=== PATIENT | male | born 1955 | race Caucasian/White ===

== ENCOUNTER → 2020-12-23 17:30 | Outpatient (CLI) | payer OTHER, SELFPAY ==
--- NOTE | 2020-12-23 17:32 | DI.MRI.S_ITS ---
PROCEDURE: MR LUMBAR SPINE WO CON INDICATIONS: Radiculopathy, lumbar region TECHNIQUE: Noncontrast sagittal T1 spin echo and T2 fast echo, sagittal STIR, axial T1 and T2 fast spin echo through the lumbar spine. In cases with scoliosis, additional coronal T2 fast spin echo may be performed. COMPARISON: [facility] [place], CR, XR LUMBAR SPINE WITH OLBIQUES PLUS FLEXION EXTENSION, 12/09/2020, 9:35. FINDINGS: Image quality: Excellent. Alignment and Curvature: 5 lumbar type vertebral bodies are present by plain film. There is mild grade 1 retrolisthesis of L5 on S1. Bone Marrow: Marrow is of normal overall signal. No acute vertebral body compression fractures. Mild reactive signal throughout the endplates of the lumbar and lower thoracic spine. Spinal Cord: Conus medullaris terminates at the L1-L2 disc space level. Visualized cord demonstrates normal signal and size. Paraspinous Soft Tissues: No paravertebral masses. T12-L1: Mild disc height loss and desiccation. No significant canal, or foraminal stenosis. L1-L2: Mild disc height loss and desiccation. Mild diffuse disc bulge. Mild facet and ligamentum flavum hypertrophy. Mild epidural lipomatosis. Mild canal stenosis. No foraminal stenosis. L2-L3: Mild disc height loss and desiccation. Mild diffuse disc bulge. Mild facet and ligamentum flavum hypertrophy. Mild epidural lipomatosis. Mild canal stenosis. Mild bilateral foraminal stenosis. L3-L4: Mild disc height loss and desiccation. Mild diffuse disc bulge. Mild facet hypertrophy. Mild epidural lipomatosis. Mild canal stenosis. Mild bilateral foraminal stenosis. L4-L5: Moderate disc height loss and desiccation. Mild diffuse disc bulge. Mild facet and ligamentum flavum hypertrophy. Mild epidural lipomatosis. Mild canal stenosis. Mild left and moderate right foraminal stenosis. L5-S1: Moderate disc desiccation. Mild disc height loss and diffuse disc bulge with superimposed left far lateral broad-based protrusion. Mild bilateral facet hypertrophy. Mild canal stenosis. Moderate right and severe left foraminal stenosis. Left L5 nerve root compression. IMPRESSION: 1. Multilevel degenerative disc and facet disease, as well as ligamentum flavum hypertrophy and epidural lipomatosis. 2. Mild multilevel canal stenosis. 3. Multilevel foraminal stenoses, worst on the left at L5-S1 where there is associated intraforaminal nerve root compression. Recommend correlation with clinical symptoms to ascertain relevance of this finding. Dictated by: Humberto Telles M.D. on 12/24/2020 at 9:11 Approved by: Humberto Telles M.D. on 12/24/2020 at 9:14
== END ==
PROVIDERS: Referring Provider Physical Medicine & Rehabilitation; Visit Provider Physical Medicine & Rehabilitation
DX: M51.16 Intervertebral disc disorders with radiculopathy, lumbar region (principal); M51.17 Intervertebral disc disorders with radiculopathy, lumbosacral region; M48.061 Spinal stenosis, lumbar region without neurogenic claudication; M48.07 Spinal stenosis, lumbosacral region; E88.2 Lipomatosis, not elsewhere classified
CPT/HCPCS: 72148

== ENCOUNTER 2021-01-31 17:27 | Emergency (ER) | payer OTHER, SELFPAY ==
[2021-01-31 17:29] VITALS: BP 220/97; PULSE 62; RESP 20; TEMP 36.9; O2SAT 98
--- NOTE | 2021-01-31 17:34 | DI.RAD.S_ITS ---
PROCEDURE: XR FOOT LT MIN 3V INDICATIONS: Crush injury TECHNIQUE: 3 views of the foot were acquired. COMPARISON: [facility], , FOOT 3V LEFT, 06/17/2007, 10:07. FINDINGS: Mildly displaced and comminuted fracture of the 4th proximal phalanx through the distal diaphysis and metaphysis, with the fracture plane extending parallel to the long axis of the bone into the proximal interphalangeal joint space. Remaining bones intact. No radiopaque foreign body. IMPRESSION: Mildly displaced and comminuted 4th proximal phalanx fracture with extension into the proximal interphalangeal joint. Dictated by: Arturo Mendoza M.D. on 01/31/2021 at 18:02 Approved by: Arturo Mendoza M.D. on 01/31/2021 at 18:02
--- NOTE | 2021-01-31 20:20 | PC.NURSE ---
Air bottle fell out of back of truck landing on top of foot, bruising noted to top of left foot and left fourth toe. Patient has intermittent sharp shooting pains in foot.
--- NOTE | 2021-01-31 20:25 | ED.LOWEXIN ---
HPI - Extremity Injury (Lower) General Chief Complaint: Extremity Injury, Lower Stated Complaint: Left Foot Injury Time Seen by Provider: 01/31/21 20:25 Source: patient Mode of arrival: Ambulatory History of Present Illness HPI Narrative: 65-year-old gentleman who does not frequent doctors and has no specific medical history for which he takes prescription medications presents after a school but tank landed on his foot over the 4th proximal phalanx. He was able to continue his work day which included walking up and down [place] [employer] and 2 dives. As he drove in to town for the evening use noticing that he was having increasing pain and comes in for further evaluation. Related Data Previous Rx's Medication Instructions Recorded oxycodone-acetaminophen 5 mg-325 1 tab PO Q6H PRN #8 tab 01/31/21 mg tablet Allergies Allergy/AdvReac Type Severity Reaction Status Date / Time No Known Drug Allergies Allergy Unverified 10/20/20 13:05 Review of Systems Review of Systems Narrative: Pertinent positive and negative findings as per HPI Remainder of review of systems is otherwise unremarkable for Constitutional: Fevers, chills, weakness ENT: No sore throat, neck pain, ear pain CV: Chest pain, palpitations, Respiratory: Cough, wheeze, dyspnea GI: Nausea, vomiting, diarrhea, : Dysuria, hematuria, Patient History Social History Smoking Status: Never smoker Smoking Status: Never smoker Exam Narrative Exam Narrative: General: Alert appropriate in no acute distress Respiratory: Able to speak in full sentences, no obvious respiratory distress Skin: No obvious rashes, warm and dry Neurologic: Grossly intact no obvious asymmetries or abnormalities Psych: appropriate insight and affect, cooperative Extremity: Left foot with some ecchymosis along the 4th toe no skin abrasions and no other injury to the foot itself Initial Vital Signs Initial Vital Signs: Vital Signs Temperature 98.4 F 01/31/21 17:29 Pulse Rate 62 01/31/21 17:29 Respiratory Rate 20 01/31/21 17:29 Blood Pressure 220/97 H 01/31/21 17:29 Pulse Oximetry 98 01/31/21 17:29 Course Orders Ordered: ED Orders 01/31/21 17:34 XR foot LT min 3V Stat Discontinued Medications Oxycodone/Acetaminophen (Oxycodone/Apap 5/325 Prepack) 1 bottle MISC SEEINSTR ONE Stop: 01/31/21 20:40 Vital Signs Vital signs: Vital Signs - 8 hr 01/31/21 17:29 Temperature 98.4 F Pulse Rate 62 Respiratory Rate 20 Blood Pressure 220/97 H Pulse Oximetry 98 [facility] - Extremity Injury (Lower) Imaging Data Xray foot: Radiologist's Impression: FINDINGS:? ? Mildly displaced and comminuted fracture of the 4th proximal phalanx through the distal diaphysis and metaphysis, with the fracture plane extending parallel to the long axis of the bone into the proximal interphalangeal joint space.? Remaining bones intact.? No radiopaque foreign body. ? ? IMPRESSION:? Mildly displaced and comminuted 4th proximal phalanx fracture with extension into the proximal interphalangeal joint.? ? ? Dictated by: Arturo Mendoza M.D. on 01/31/2021 at 18:02? [facility] Narrative Medical decision making narrative: 65-year-old gentleman who dropped a scuba tank, valve surface 1st, onto his foot and has a comminuted 4th proximal phalanx fracture. He is able to walk and has no other significant symptoms. We discussed pain control, resting for the next couple of days and using a hard soled shoe for comfort. He actually has multiple options available including of boot splint from a friend that he has access to as well. He is safe for home discharge Discharge Plan Departure Patient Disposition: Home Clinical Impression: Fracture of toe of left foot Qualifiers: Encounter type: initial encounter Toe: lesser toe Fracture type: closed Phalanx: proximal Fracture alignment: displaced Qualified Code(s): S92.512A - Displaced fracture of proximal phalanx of left lesser toe(s), initial encounter for closed fracture Instructions: DI for Toe Fracture Activity Restrictions/Additional Instructions: Thank you for coming in today You did break the bone of your left 4th toe. It should heal nicely with use of a hard soled shoe to minimize movement of your toe. Keeping the foot elevated and ice can help with pain and swelling Using 400 mg of ibuprofen (2 [id number] pills) and 1 Tylenol every 6 hours can be very helpful in controlling pain. For severe pain using 400 mg of ibuprofen and 1 Percocet can be helpful. A prescription for Percocet was electronically transmitted to [facility] in [place] Your blood pressure in the ER today was quite elevated. I would recommend that you get a blood pressure cuff and begin monitoring numbers. You may need to be treated for high blood pressure. It is called a silent killer because it tends to have minimal symptoms until you end up having your 1st heart attack Please feel free to call the health administrative resources associate at [phone] for help in finding a primary care provider in [place] If you have difficulty with your foot or increasing pain, please follow-up with [facility], their phone number is [phone] I hope you heal quickly Prescriptions: New oxycodone-acetaminophen 5-325 mg tablet 1 tab PO Q6H PRN (Reason: pain) Qty: 8 RF: 0
[2021-01-31 20:46] VITALS: BP 216/99; PULSE 78; RESP 12; O2SAT 97
[2021-01-31] MEDS: OXYCODONE/APAP 5/325 PREPACK 1 BOTTLE MISC (20:51)
== END 2021-01-31 20:58 | disposition home or self-care (01) ==
PROVIDERS: Emergency Provider Emergency Medicine
DX: S92.512A Displaced fracture of proximal phalanx of left lesser toe(s), initial encounter for closed fracture (principal); W20.8XXA Other cause of strike by thrown, projected or falling object, initial encounter
CPT/HCPCS: 73630; 99283

== ENCOUNTER → 2022-07-14 13:02 | Outpatient (CLI) | payer OTHER, SELFPAY ==
[2022-07-14 14:47] LABS: Influenza A - CEPHEID Flu A NEGATIVE (NEGATIVE); Influenza B - CEPHEID Flu B NEGATIVE (NEGATIVE); Respiratory Syncytial Virus Negative (Negative)
[2022-07-14 14:51] LABS: COVID-19 CEPHEID 4-PLEX PCR Negative (Negative)
== END ==
PROVIDERS: Visit Provider Registered Nurse
DX: N39.0 Urinary tract infection, site not specified (principal); J06.9 Acute upper respiratory infection, unspecified; Z20.822 Contact with and (suspected) exposure to COVID-19
CPT/HCPCS: 0241U; 87077; 87086; 87186

== ENCOUNTER 2022-08-05 15:47 | Observation (INO) | payer OTHER, SELFPAY ==
[2022-08-05] VITALS (16 sets, daily range): BP systolic 147–201; BP diastolic 75–106; PULSE 62–78; RESP 10–23; TEMP 36.6–38; O2SAT 97–99; BMI 25.8; BMI 26.2
--- NOTE | 2022-08-05 16:02 | DI.CT.S_ITS ---
PROCEDURE: CT CHEST ABD PEL W CON INDICATIONS: Trauma TECHNIQUE: After the administration of intravenous contrast, 5 mm thick sections acquired from the lung apices to the symphysis. 5 mm coronal and sagittal reformats were performed, with additional 7 mm MIP reformats through the lungs. For radiation dose reduction, the following was used: automated exposure control, adjustment of mA and/or kV according to patient size. COMPARISON: None. FINDINGS: Chest: Cardiovascular: Heart size is normal. No evidence of pulmonary embolism, aortic aneurysm or dissection. Lungs and pleural spaces: The lung salazar are clear without nodule, infiltrate or interstitial prominence. Pleural spaces show no effusion or pneumothorax. Lymph nodes: No mediastinal, hilar or axillary adenopathy. Mediastinum: Unremarkable. No hiatal hernia. Thyroid within normal limits. Chest Wall and Bones: Comminuted right clavicular fracture. Nondisplaced right anterolateral 7th rib fracture Abdomen and Pelvis: Liver: The liver is diffusely decreased in attenuation without focal mass lesion. Biliary system: No calcified cholelithiasis or pericholecystic inflammation. No intra or extrahepatic bile duct dilatation. Pancreas: Unremarkable without mass or inflammation evident. Spleen: Normal in size and density. Adrenals: Normal morphology and density. Reproductive system: Unremarkable as visualized. Urinary system: 4.8 cm left renal cyst. Evidence of traumatic injury Gastrointestinal system: The bowel is unremarkable with no evidence of bowel obstruction or inflammation. The stomach appears unremarkable. Appendix: No findings to suggest acute appendicitis. Lymph nodes: No mesenteric or retroperitoneal adenopathy. Peritoneal spaces: No free air. No free fluid. Vasculature: Aortic atherosclerotic vascular calcification noted without evidence of aneurysm. Abdominal wall: Abdominal wall intact without evidence of ventral or inguinal hernias. Musculoskeletal: Fracture through the anterior aspect of the right acetabulum. No dislocation. IMPRESSION: 1. Comminuted right clavicular fracture, nondisplaced right anterolateral 7th rib fracture, and nondisplaced fracture through the right anterior acetabulum 2. No evidence of pneumothorax or solid organ injury. 3. Additional chronic findings as above Approved by: Deandre Garcia M.D. on 08/05/2022 at 17:03
--- NOTE | 2022-08-05 16:02 | DI.CT.S_ITS ---
PROCEDURE: CT CERVICAL SPINE WO CON INDICATIONS: Trauma TECHNIQUE: Noncontrast 3 mm thick sections acquired from the skull base to the T4 level. Sagittal and coronal reformats were then constructed. For radiation dose reduction, the following was used: automated exposure control, adjustment of mA and/or kV according to patient size. COMPARISON: None. FINDINGS: Image quality: Excellent. Bones: Disc space narrowing and facet arthropathy noted in the mid cervical spine. There is normal bone mineral density without fracture of the cervical spine proper. Normal craniovertebral relationships. Skull base unremarkable. Incidental note is made comminuted right clavicular fracture, partially imaged Soft tissues: Prevertebral soft tissues are normal in thickness. No paravertebral hematomas. No apical pneumothoraces. IMPRESSION: No evidence of fracture or traumatic malalignment in the cervical spine. Incidental right comminuted clavicular fracture, further detailed in CT chest abdomen and pelvis report Multilevel degenerative disc disease and arthropathy in cervical spine Approved by: Deandre Garcia M.D. on 08/05/2022 at 16:56
--- NOTE | 2022-08-05 16:02 | DI.CT.S_ITS ---
PROCEDURE: CT HEAD/BRAIN WO CON INDICATIONS: Trauma TECHNIQUE: Noncontrast 4.5 mm thick angled axial sections acquired from the foramen magnum to the vertex, with coronal and sagittal reformats. For radiation dose reduction, the following was used: automated exposure control, adjustment of mA and/or kV according to patient size. COMPARISON: None. FINDINGS: Image quality: Excellent. CSF spaces: Basal cisterns are patent. No extra-axial fluid collections. Ventricles are normal in size and shape. Brain: No midline shift. No intracranial masses or hemorrhage. Melton-white matter interface is normal. Moderate cerebral and cerebellar volume loss with multifocal white matter chronic ischemic change noted. Atherosclerotic calcification noted associated with cavernous segments of both internal carotid arteries. Skull and face: Calvarium and visualized facial bones are intact, without suspicious lesions. Sinuses: Visualized sinuses and mastoids are clear. IMPRESSION: Atrophy and chronic ischemic change without intracranial hemorrhage or mass effect Approved by: Deandre Garcia M.D. on 08/05/2022 at 16:44
--- NOTE | 2022-08-05 16:10 | DI.CT.S_ITS ---
PROCEDURE: CT FACIAL BONES WO CON INDICATIONS: trauma TECHNIQUE: Noncontrast 2.5 mm thick axial images acquired from the mandible through the frontal sinuses, with coronal and sagittal reformatting. For radiation dose reduction, the following was used: automated exposure control, adjustment of mA and/or kV according to patient size. COMPARISON: None. FINDINGS: Maxillofacial Bones: The zygomaticomaxillary complex is intact. The pterygoid plates and skull base are unremarkable. No evidence of fracture or lytic lesion. Mandible: The mandible is intact without fracture. Unremarkable temporomandibular articulation. Dentition: Unremarkable mandibular and maxillary dentition. Soft tissues: No maxillofacial soft tissue swelling. No radiopaque foreign bodies. Orbits: The osseous orbits, globes and ocular muscles unremarkable. Sinuses and Mastoid: Mild maxillary sinus mucosal thickening measures up to 0.4 mm. Bilateral pneumatization of the middle turbinates with paradoxical curvature present as well IMPRESSION: No evidence of maxillofacial fracture. Maxillary mucosal sinus disease Approved by: Deandre Garcia M.D. on 08/05/2022 at 17:07
--- NOTE | 2022-08-05 16:10 | DI.RAD.S_ITS ---
PROCEDURE: XR SHOULDER RT MIN 2V INDICATIONS: trauma TECHNIQUE: 2 views of the shoulder were acquired. COMPARISON: None. FINDINGS: Bones: Comminuted clavicular fracture inferior displacement distal fracture fragment in bayonet apposition Soft tissues: No suspicious soft tissue calcifications. IMPRESSION: Comminuted displaced clavicular fracture Approved by: Deandre Garcia M.D. on 08/05/2022 at 17:09
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
[2022-08-05] MEDS: HYDROMORPHONE 1 MG INJ IV (16:16)
[2022-08-05] MEDS: ONDANSETRON 4 MG/2 ML INJ IV (16:16)
[2022-08-05 16:57] LABS: Add Manual Diff / Slide Review NO; Basophils Absolute Auto 100 /uL (0-100); Basophils Percent Auto 0.8 % (0-2); Eosinophils Absolute Auto 400 /uL (0-450); Eosinophils Percent Auto 3.4 % (2-4); Hematocrit 43.2 % (41-53); Hemoglobin 15.1 g/dL (13.5-17.5); Lymphocytes Absolute Auto 4100 /uL (1100-4500); Lymphocytes Percent Auto 38.5 % (25-40); Mean Corpuscular HGB Conc 34.9 % (30-36); Mean Corpuscular Hemoglobin 31.9 PG (26-34); Mean Corpuscular Volume 91.5 fL (80-100); Monocytes Absolute Auto 1000 /uL (0-900); Monocytes Percent Auto 9.2 % (3-14); Neutrophils Absolute Auto 5100 /uL (1500-7000); Neutrophils Percent Auto 48.1 % (50-75); Platelet Count 199 X10^3/uL (150-400); Red Blood Cell Count 4.72 X10^6/uL (4.5-5.9); Red Cell Distribution Width 13.2 % (11.6-14.8); White Blood Cell Count 10.5 X10^3/uL (4.5-11.0)
[2022-08-05 17:08] LABS: Prothrombin Time 11.3 SECONDS (10.1-12.7)
[2022-08-05 17:10] LABS: PTT Partial Thromboplastin Tim 31 SECONDS (26-36)
[2022-08-05 17:12] LABS: Alanine Aminotransferase 47 IU/L (<50); Albumin 4.5 g/dL (3.5-5.0); Albumin Globulin Ratio 1.5 (1.0-2.8); Alkaline Phosphatase 81 U/L (38-126); Aspartate Aminotransferase 45 IU/L (17-59); Bilirubin Total 0.6 mg/dL (0.2-1.3); Blood Urea Nitrogen 14 mg/dL (9-20); Calcium 9.3 mg/dL (8.4-10.2); Carbon Dioxide 29 mmol/L (22-32); Chloride 102 mmol/L (98-107); Estimated Glomerular Filt Rate > 60 mL/min (>60); Ethanol (ETOH) < 10 mg/dL; Globulin 3.1 g/dL (1.7-4.1); Glucose 114 mg/dL (80-110); HEMOLYSIS < 15 (0-50); Lactate (Lactic Acid) 1.6 mmol/L (0.7-2.1); Lipase 101 U/L (23-300); Potassium 3.4 mmol/L (3.4-5.1); Sodium 137 mmol/L (137-145); Total Protein 7.6 g/dL (6.3-8.2)
[2022-08-05 19:34] LABS: COVID19 -Nasal RAPID Negative (Negative)
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
[2022-08-05] MEDS: HYDROMORPHONE 0.5 MG INJ IV (20:55)
[2022-08-05] MEDS: ACETAMINOPHEN 325 MG TABLET 650 MG PO (21:36)
[2022-08-05] MEDS: SENNOSIDES 8.6 MG TABLET 17.2 MG PO (21:37)
[2022-08-05] MEDS: LACTATED RINGERS 1,000 ML 60 ML IV (21:37)
[2022-08-06] MEDS: HYDROCODONE/ACET 5/325 TABLET 2 TAB PO ×5 (01:58→20:16)
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
[2022-08-06 05:31] LABS: Add Manual Diff / Slide Review NO; Basophils Absolute Auto 100 /uL (0-100); Basophils Percent Auto 0.6 % (0-2); Eosinophils Absolute Auto 200 /uL (0-450); Eosinophils Percent Auto 2.1 % (2-4); Hematocrit 40.1 % (41-53); Hemoglobin 13.9 g/dL (13.5-17.5); Lymphocytes Absolute Auto 2300 /uL (1100-4500); Lymphocytes Percent Auto 20.9 % (25-40); Mean Corpuscular HGB Conc 34.6 % (30-36); Mean Corpuscular Hemoglobin 31.7 PG (26-34); Mean Corpuscular Volume 91.7 fL (80-100); Monocytes Absolute Auto 900 /uL (0-900); Monocytes Percent Auto 7.9 % (3-14); Neutrophils Absolute Auto 7500 /uL (1500-7000); Neutrophils Percent Auto 68.5 % (50-75); Platelet Count 184 X10^3/uL (150-400); Red Blood Cell Count 4.37 X10^6/uL (4.5-5.9); Red Cell Distribution Width 12.8 % (11.6-14.8)
[2022-08-06 06:00] VITALS: BP 151/76; PULSE 63; RESP 17; TEMP 36.8; O2SAT 96
[2022-08-06 06:00] LABS: BUN Creatinine Ratio 15.3 (6-22); Blood Urea Nitrogen 13 mg/dL (9-20); Calcium 8.7 mg/dL (8.4-10.2); Carbon Dioxide 23 mmol/L (22-32); Chloride 98 mmol/L (98-107); Estimated Glomerular Filt Rate > 60 mL/min (>60); Glucose 106 mg/dL (80-110); HEMOLYSIS 18 (0-50); Sodium 131 mmol/L (137-145)
[2022-08-06 06:15] LABS: Appearance Urine UA CLEAR; Bilirubin Urine UA NEGATIVE (NEGATIVE); Color Urine UA YELLOW; Glucose Urine UA NEGATIVE (Negative); Ketones Urine UA NEGATIVE (NEGATIVE); Leukocyte Esterase Urine UA NEGATIVE (NEGATIVE); Nitrite Urine UA NEGATIVE (Negative); Occult Blood Urine UA NEGATIVE (Negative); Protein Urine UA NEGATIVE (Negative); Specific Gravity Urine UA 1.015 (1.000-1.035); pH Urine UA 6.5 (4.5-8.0)
[2022-08-06 07:15] LABS: Bacteria Urine Occasional (0-1); Culture Indicated Urine Cult Not Indicated; RBC Urine 0-1/HPF (0-5/HPF); Squamous Epithelial Cell Urine 0-1 /HPF (0-5/HPF); WBC Urine None Seen (0-5/HPF)
--- NOTE | 2022-08-06 07:19 | PC.NURSE ---
Pt reports worship of [employer]. Will not accept blood products. Provider informed.
[2022-08-06] MEDS: ENOXAPARIN 40 MG/0.4 ML SYRINGE SUBCUT (09:35)
--- NOTE | 2022-08-06 10:36 | DI.CT.S_ITS ---
PROCEDURE: CT PEL WO CON INDICATIONS: Acetabular fracture TECHNIQUE: After the administration of oral contrast, 5 mm thick sections acquired from the iliac crests to the symphysis. 5 mm coronal and sagittal reformats were then performed. For radiation dose reduction, the following was used: automated exposure control, adjustment of mA and/or kV according to patient size. COMPARISON: [facility], CT, CT CHEST ABD PEL W CON, 08/05/2022, 16:06. FINDINGS: Minimally displaced fracture through the anterior lip of the right acetabulum is again noted, similar to prior exam. Additionally, there is a nondisplaced cortical fracture involving the posterior cortex of the right superior pubic rami, and a nondisplaced completed linear fracture through the right inferior pubic rami. Soft tissues normal without hematoma. Degenerative changes noted lower lumbar spine. IMPRESSION: 1. Minimally displaced fracture, anteriorly above the right acetabulum. 2. Additional nondisplaced complete fracture through right inferior pubic rami as well as incomplete cortical fracture involving the posterior aspect of the superior pubic rami Approved by: Deandre Garcia M.D. on 08/06/2022 at 15:54
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
[2022-08-06 11:31] VITALS: BP 161/86; PULSE 62; RESP 18; TEMP 36.8; O2SAT 94
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
[2022-08-06 15:52] VITALS: BP 171/86; PULSE 62
[2022-08-06] MEDS: lisinopriL 5 MG TABLET PO ×2 (15:52→20:16)
--- NOTE | 2022-08-06 16:03 | PC.NURSE ---
Assumed care of pt at 1500, A&Ox4, c/o 5/10 pain to R clavicle and R hip. CMS intact to R UE and R LE. N/t at baseline to LLE. Lungs CTA, bowel sounds present, no c/o constipation. Pt prepared for CT, escorted to bathroom 1 person SBA.
[2022-08-06 18:00] VITALS: BP 139/72; PULSE 62; RESP 18; TEMP 36.4; O2SAT 94
[2022-08-06 20:16] VITALS: BP 139/72; PULSE 72
[2022-08-06] MEDS: SENNOSIDES 8.6 MG TABLET 17.2 MG PO (20:16)
[2022-08-07] VITALS (7 sets, daily range): BP systolic 122–152; BP diastolic 68–80; PULSE 52–65; RESP 16–18; TEMP 36.7–37.5; O2SAT 95–100
[2022-08-07] MEDS: HYDROCODONE/ACET 5/325 TABLET 2 TAB PO ×2 (04:35→08:39)
[2022-08-07 04:42] LABS: Add Manual Diff / Slide Review NO; Basophils Absolute Auto 100 /uL (0-100); Basophils Percent Auto 0.7 % (0-2); Eosinophils Absolute Auto 400 /uL (0-450); Eosinophils Percent Auto 4.5 % (2-4); Hematocrit 40.2 % (41-53); Hemoglobin 13.9 g/dL (13.5-17.5); Lymphocytes Absolute Auto 2000 /uL (1100-4500); Lymphocytes Percent Auto 20.9 % (25-40); Mean Corpuscular HGB Conc 34.7 % (30-36); Mean Corpuscular Hemoglobin 31.9 PG (26-34); Mean Corpuscular Volume 92.1 fL (80-100); Monocytes Absolute Auto 1000 /uL (0-900); Monocytes Percent Auto 10.2 % (3-14); Neutrophils Absolute Auto 6000 /uL (1500-7000); Neutrophils Percent Auto 63.7 % (50-75); Platelet Count 164 X10^3/uL (150-400); Red Blood Cell Count 4.37 X10^6/uL (4.5-5.9); Red Cell Distribution Width 13.2 % (11.6-14.8); White Blood Cell Count 9.4 X10^3/uL (4.5-11.0)
[2022-08-07 04:56] LABS: Alanine Aminotransferase 33 IU/L (<50); Albumin 3.7 g/dL (3.5-5.0); Albumin Globulin Ratio 1.2 (1.0-2.8); Alkaline Phosphatase 75 U/L (38-126); Aspartate Aminotransferase 25 IU/L (17-59); BUN Creatinine Ratio 17.3 (6-22); Bilirubin Total 0.6 mg/dL (0.2-1.3); Blood Urea Nitrogen 17 mg/dL (9-20); Calcium 8.9 mg/dL (8.4-10.2); Carbon Dioxide 27 mmol/L (22-32); Chloride 103 mmol/L (98-107); Estimated Glomerular Filt Rate > 60 mL/min (>60); Glucose 101 mg/dL (80-110); HEMOLYSIS < 15 (0-50); Potassium 4.1 mmol/L (3.4-5.1); Sodium 135 mmol/L (137-145); Total Protein 6.7 g/dL (6.3-8.2)
[2022-08-07] MEDS: lisinopriL 5 MG TABLET PO ×2 (08:39→20:28)
[2022-08-07] MEDS: ENOXAPARIN 40 MG/0.4 ML SYRINGE SUBCUT (08:40)
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
[2022-08-07] MEDS: HYDRALAZINE 25 MG TABLET PO (17:29)
[2022-08-07] MEDS: ACETAMINOPHEN 325 MG TABLET 650 MG PO (17:30)
[2022-08-07] MEDS: SENNOSIDES 8.6 MG TABLET 17.2 MG PO (20:28)
[2022-08-08] MEDS: HYDROCODONE/ACET 5/325 TABLET 2 TAB PO ×2 (00:28→09:08)
[2022-08-08 00:52] VITALS: BP 154/76; PULSE 63; RESP 19; TEMP 36.5; O2SAT 96
[2022-08-08 06:29] VITALS: BP 156/80; PULSE 55; RESP 17; TEMP 36.6; O2SAT 97
[2022-08-08 08:52] VITALS: BP 141/74; PULSE 59; RESP 18; TEMP 36.4; O2SAT 96
[2022-08-08 09:07] VITALS: BP 141/74; PULSE 59
[2022-08-08] MEDS: lisinopriL 5 MG TABLET PO (09:07)
[2022-08-08] MEDS: ENOXAPARIN 40 MG/0.4 ML SYRINGE SUBCUT (09:07)
[2022-08-08] MEDS: HYDRALAZINE 25 MG TABLET PO ×2 (09:07→16:19)
--- NOTE | 2022-08-08 09:41 | PT.IPTN ---
Current Diagnoses Fracture of unspecified part of right clavicle, initial encounter for closed fracture (08/05/22) Physical Therapy Treatment Note M2 PT-IP Current Condition Start: 08/07/22 08:32 Freq: NEEDED Status: Active Protocol: Document 08/07/22 12:10 AW (Rec: 08/07/22 15:51 AW [id number]) Physical Therapy Current Condition Current Condition Evaluation Date 08/07/22 Treatment Diagnosis R clavicle fx; R 7th rib fx; R acetabular fx; impaired mobility and gait Onset Date 08/05/22 M3 PT-IP Subjective Start: 08/07/22 08:32 Freq: NEEDED Status: Active Protocol: Document 08/08/22 10:25 TS (Rec: 08/08/22 11:00 TS [id number]) Subjective Physical Therapy Visit Type Type Treatment Note Visit Start Time 09:41 Visit Stop Time 10:10 Total Visit Minutes 29 Physical Therapy Visit Comments Patient Comments Discussed wbering status of TTWB with pt prior to mobilization, is agreeable to go to SNF rehab if needed. Patient Goals Heal up and get back to regular activity LAURNE Therapy Pain Assessment Pain When Pain Assessed During Mobility Pain Present Pain Present Pain Reported M4 PT-IP Mobility and Gait Start: 08/07/22 08:32 Freq: NEEDED Status: Active Protocol: Document 08/08/22 10:25 TS (Rec: 08/08/22 11:00 TS [id number]) PT-Bed Mobility Assessment Supine to Sit Supine to Sit Standby Assistance Sit to Supine Sit to Supine Standby Assistance Scooting Scooting to Edge of Bed Standby Assistance Scooting Up and Down in Bed Standby Assistance PT-Transfer Assessment Sit to and From Stand Sit to and from Stand Standby Assistance,Use of Upper Extremities Equipment Transfer Assistive Device Gait Belt,Axillary Crutches Orthotic/Prosthetic Devices or Brace: Yes Transfers Transfer Destination Bed,Wheelchair Transfer Technique Stand Pivot Transfer Ability Level of Assist Standby Assistance,Contact Guard Assistance Comments Mobility Comments Pt found resting in bed, agreeable to PT session. Educated pt on wbering status of TTWB prior to mobilization. Pt performed supine to sit to left and to the right SBA with use of LUE and LLE. Pt sat at EOB with good midline and no use of UEs. Pt performed sit to stand with crutch x1 SBA, difficulty maintaining TTWB, x1 LOB requiring to sit back on bed. Sit to stand x1 SBA with no AD , maintained TTWB, good use of core and LLE to come into standing, transitioned to crutch with LUE. Pt performed pivot transfer to W/C SBA with crutch, PWB through RLE during transfer, unable to maintain TTWB, x1 LOB into W/C requiring CGA. Pt used W/C in room ~20' with LUE and LLE to propel and turn in room. Stand pivot transfer x1 from W /C to bed SBA with crutch LUE, again difficulty maintaining TTWB, partially wbers through RLE. Sit to supine x1 SBA, use of LUE and LLE to assist back into bed. Gait Assessment Comments Gait Comments not performed Stair Climbing Assessment Comments Stair Climbing Comments Not assessed. PT-Balance Assessment Sitting Balance and Reactions Static Sitting Balance Ability Good Dynamic Sitting Balance Ability Good Standing Balance and Reactions Static Standing Balance Ability Good Dynamic Standing Balance Ability Good Device Used Crutch vs no AD Comments Other Balance Tests/Deviations/Treatment Pt stands with no AD, has : difficulty maintaining TTWB status, transitions to crutch in stadning. Pt had LOB x2 requiring CGA x1, uses crutch to catch self. M5 PT-IP Objective Assessments Start: 08/07/22 08:32 Freq: NEEDED Status: Active Protocol: Document 08/07/22 12:10 AW (Rec: 08/07/22 15:51 AW [id number]) Orientation Orientation/Cognition Level of Alertness Alert Orientation Name,Birthday,Date,Day of Week ,Place,Situation Language Function Ability No Deficits Noted Comments Pt needs continued education and reinforcement of weightbearing status. Gross Range of Motion Upper Extremity ROM Assessment Within Functional Limits Lower Extremity ROM Assessment Within Functional Limits Strength Upper Extremity Strength Assessment Within Functional Limits Comments Strength Comments LLE grossly 5/5; distal RLE 4+ /5 to 5/5 Sensation Assessment Sensation Gross Sensation WNL M6 PT-IP Treatment Start: 08/07/22 08:32 Freq: NEEDED Status: Active Protocol: Document 08/08/22 10:25 TS (Rec: 08/08/22 11:00 TS [id number]) Physical Therapy Treatment Education Education Provided Weight Bearing Status,Safety M7 PT-IP Assessment and Plan Start: 08/07/22 08:32 Freq: NEEDED Status: Active Protocol: Document 08/08/22 10:25 TS (Rec: 08/08/22 11:00 TS [id number]) PT Summary Assessment and Plan Potential Rehabilitation Potential Good Status of Condition at Evaluation Evolving Summary Impairments Pain,Strength,Balance,Bed Mobility,Transfers,Gait Assessment Summary Pt continues to require education on TTWB status. He has difficulty maintaining TTWB during sit to stands and with stand pivot transfer to W /C. Pt continues to perform all bed mobility SBA, demonstrates good use of LUE, LLE and core to sit up on EOB. Pt performed sit to stand x1 with crutch, LOB x1 onto bed, performed sit to stand x2 with no AD, no LOB but difficult to maintain TTWB. He performed stand pivot transfer x2, x1 LOB requiring CGA to safely transfer to W/C. PT recommends SNF Rehab vs 06/11 home assist available at this time. Pt is unsafe with stand pivot transfers and ambulation due to LOBs with crutch and not being able to maintain TTWB status. W/C for home use may not be possible due to returning to trailer that may not be wide enough to accomdate it. Pt does not have family/friends house he can stay at currently. Pt is willing to go to rehab for a short time to recover enough to return home. Goals Bed Mobility Goal Independent Transfer Goal Independent,Cane,Crutches Gait Goal Independent,Cane,Crutches Gait Distance 50 Other Goals - up/down stairs SBA (if pt to discharge to an environment with stairs) Days to Meet Goals 10 Frequency of Treatment Frequency Of Treatment Twice a Day Treatment Plan Physical Therapy Treatment Plan Bed Mobility Training,Transfer Training,Gait Training, Therapeutic Exercise,Balance Retraining,Post Op Education, Discharge Planning,Hot or Cold Pack Other Recommendations and Next Treatment CHECK WB ORDER; transfers with Focus cane; gait if allower per WB status Weight Bearing Status Weight Bearing Status Touch Down Weight Bearing Allowed Weight Bearing Amount (enter % TTWB RLE (until otherwise or #) (%) specified) Recommendations To Nursing Amount of Assist Needed Standby Assistance,1 Person Assist Discharge Recommendations PT Discharge Recommendations Home with Assistance,Home Health,SNF Rehab Other Discharge Recommendations TBD pending WB status and pt progress Transportation Needs at Discharge Private Vehicle
--- NOTE | 2022-08-08 10:34 | CM.DPC ---
Addendum entered by GLEN Davidson 08/08/22 14:32: ADD: Return call from [facility] stating they obtained auth and can transport pt tomorrow around 1400. Per POWER SEWING MACHINE OPERATOR, with pt switch to WBAT he was able to ambulate the halls with crutches and complete stairs and feels he could d/c home with some assist and will not need SNF and pt confirms local friends can transport and assist with meals. Pt does not anticipate any further needs. Per MD, pt can d/c home this evening and does not anticipate any d/c barriers. SW updated [facility] but they will hold auth to confirm pt discharges home safely. BF Addendum entered by GLEN Davidson 08/08/22 11:51: ADD: Return call from [facility] admissions confirming they can accept pt and will submit for [employer] auth today in case SNF needed. JOE hasn't updated pt yet bedside and still awaiting further PT/OT. BF Original Note: DCP SNF vs Home Per MD, pt making some progress and per PT/OT pending pt's weight bearing status recommending SNF vs home and MD agreeable to get clarification from Ortho for PT/OT to work further with pt today. SW met bedside with pt and he confirms his preference is to return to his RV for healing and does not have plans to stay with friends but would be agreeable to SNF if really needed and willing for SNF referrals to local [facility] contracted facilities. SW made SNF referrals to [facility], [facility] and [facility] as they are contracted with [facility]. PASRR done. Plan: JOE to follow closely today for clarification on weight bearing status and further PT/OT to confirm SNF vs return to RV at d/c. GLEN Davidson
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
[2022-08-08 16:19] VITALS: BP 141/74; PULSE 59
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
== END 2022-08-08 16:46 | disposition home or self-care (01) | DRG 562 ==
LOC: ED 16:22 → AC 18:41
PROVIDERS: Nurse Practitioner Family; Admitting Provider Neuromusculoskeletal Medicine, Sports Medicine; Emergency Provider Emergency Medicine; Referring Provider Emergency Medicine; Visit Provider Neuromusculoskeletal Medicine, Sports Medicine
DX: S42.001A Fracture of unspecified part of right clavicle, initial encounter for closed fracture (principal); S32.401A Unspecified fracture of right acetabulum, initial encounter for closed fracture; S22.31XA Fracture of one rib, right side, initial encounter for closed fracture; I10 Essential (primary) hypertension; I16.0 Hypertensive urgency; S00.12XA Contusion of left eyelid and periocular area, initial encounter; V28.01XA Electric (assisted) bicycle driver injured in noncollision transport accident in nontraffic accident, initial encounter; Z20.822 Contact with and (suspected) exposure to COVID-19
CPT/HCPCS: 36415; 70450; 70486; 70551; 71260; 72125; 72192; 73030; 74177; 80048; 80053; 80320; 81001; 83605; 83690; 85025; 85610; 85730; 86850; 86900; 86901; 87635; 93005; 93010; 96374; 96375; 96376; 97116; 97162; 97166; 97530; 97535; 99284; C9803; G0378; J1170; J1650; J2405; Q9967

== ENCOUNTER 2024-10-16 09:39 | Emergency (ER) | payer OTHER, SELFPAY ==
[2022-08-05 21:23] VITALS: BMI 26.2
[2024-10-16 10:13] VITALS: BP 229/108; PULSE 71; RESP 16; TEMP 36.4; O2SAT 99; BMI 27.1
[2024-10-16 10:46] LABS: Add Manual Diff / Slide Review NO; Hematocrit 46.4 % (41-53); Hemoglobin 15.9 g/dL (13.5-17.5); Lymphocytes Absolute Auto 1500 /uL (1100-4500); Mean Corpuscular HGB Conc 34.2 % (30-36); Mean Corpuscular Hemoglobin 32.6 PG (26-34); Mean Corpuscular Volume 95.1 fL (80-100); Platelet Count 224 X10^3/uL (150-400)
[2024-10-16 10:55] LABS: Alanine Aminotransferase 59 IU/L (<50); Albumin 4.8 g/dL (3.5-5.0); Albumin Globulin Ratio 1.4 (1.0-2.8); Alkaline Phosphatase 89 U/L (38-126); Blood Urea Nitrogen 18 mg/dL (9-20); Calcium 9.4 mg/dL (8.4-10.2); Carbon Dioxide 22 mmol/L (22-32); Chloride 104 mmol/L (98-107); Estimated Glomerular Filt Rate > 60 mL/min (>60); Globulin 3.4 g/dL (1.7-4.1); Glucose 110 mg/dL (70-99); HEMOLYSIS < 15 (0-50); Lipase 135 U/L (23-300); Potassium 4.2 mmol/L (3.4-5.1); Sodium 137 mmol/L (137-145); Total Protein 8.2 g/dL (6.3-8.2)
[2024-10-16] MEDS: LIDOCAINE 2% (GLYDO) 6 ML GEL TOP (11:14)
[2024-10-16 11:45] LABS: Culture Indicated Urine Cult Not Indicated
--- NOTE | 2024-10-16 12:16 | ED.ABDPAIN ---
HPI - Abdominal Pain General Chief Complaint: Abdominal Pain Stated Complaint: abd pain, constipation unable to urinate Time Seen by Provider: 10/16/24 11:55 Source: patient Mode of arrival: Ambulatory History of Present Illness HPI narrative: Patient here for urinary retention as well as lower abdominal distention and discomfort. Patient states has problems with constipation has not had a bowel movement in 3 days. States he feels there is stool at the rectum. He does not take laxatives. He does drink plenty of fluids and takes in a lot of fiber in his diet. Veliz catheter was placed on arrival and patient had 1800 mL of urine out. He is feeling better but still feels stool at his rectum. Denies denies any chest pain or back pain. No syncope. Blood pressure noted. He does take blood pressure medication. However states the discomfort likely causing his blood pressure elevation. Related Data Previous Rx's ?Medication ?Instructions ?Recorded oxycodone 5 mg tablet 5 - 10 mg (1 - 2 x 5 mg) PO Q6H 08/08/22 PRN pain #30 tabs tamsulosin 0.4 mg capsule 0.4 mg PO DAILY #30 caps 10/16/24 Allergies Allergy/AdvReac Type Severity Reaction Status Date / Time No Known Drug Allergies Allergy Unverified 10/20/20 13:05 Review of Systems Review of Systems Narrative: GENERAL: Negative chills, fatigue, malaise, fever, sweats. HEENT: Negative sinus pain, ear pain, sore throat RESPIRATORY: Negative dyspnea, cough CARDIOVASCULAR: Negative chest pain, palpitations GASTROINTESTINAL: Negative vomiting, positive nausea, abdominal pain : Negative dysuria, frequency, hematuria MUSCULOSKELETAL: Negative muscle or bony pain SKIN: Negative rash, skin lesions NEUROLOGIC: Negative weakness, numbness, positive dizziness ROS Unobtainable: All systems reviewed & are unremarkable except as noted in HPI and below Patient History Family History Father Diabetes mellitus Mother Diabetes mellitus Brother Diabetes mellitus Social History household members: none alcohol intake: current alcohol intake frequency: a few times a week Alcohol type: hard liquor Exam Initial Vital Signs Initial Vital Signs: Vital Signs Temperature 97.5 F L 10/16/24 10:13 Pulse Rate 71 10/16/24 10:13 Respiratory Rate 16 10/16/24 10:13 Blood Pressure 229/108 H 10/16/24 10:13 Pulse Oximetry 99 10/16/24 10:13 Oxygen Delivery Method Room Air 10/16/24 10:13 Course Orders Ordered: Discontinued Medications Sodium Chloride (Normal Saline 0.9%) 500 mls @ 1,000 mls/hr IV BOLUS ONE Stop: 10/16/24 12:50 Last Infusion: 10/16/24 13:59 Dose: Infused Documented By: Admin: 10/16/24 13:28 Dose: 1,000 mls/hr Documented By: ALLEY Ketorolac Tromethamine (Ketorolac 30 Mg/Ml Vial) 15 mg IV NOW ONE Stop: 10/16/24 12:16 Last Admin: 10/16/24 13:27 Dose: 15 mg Documented By: ALLEY Lidocaine HCl (Lidocaine 2% (Glydo) 6 Ml Gel) 6 ml TOP NOW ONE Stop: 10/16/24 10:41 Last Admin: 10/16/24 11:14 Dose: 6 ml Documented By: NANDA Ondansetron HCl (Ondansetron 4 Mg/2 Ml Inj) 4 mg IV NOW PRN PRN Reason: Nausea And Vomiting Ondansetron HCl (Ondansetron 4 Mg Odt) 4 mg PO NOW PRN PRN Reason: Nausea And Vomiting Polyethylene Glycol/Electrolytes ([id number]/Sod Sulf,Bicarb,Cl/Kcl 4,000 Ml Solution) 2,000 ml PO NOW ONE Stop: 10/16/24 13:48 Last Admin: 10/16/24 14:07 Dose: 2,000 ml Documented By: ALLEY Tamsulosin HCl (Tamsulosin 0.4 Mg Capsule) 0.4 mg PO NOW ONE Stop: 10/16/24 13:49 Last Admin: 10/16/24 14:04 Dose: 0.4 mg Documented By: ALLEY Vital Signs Vital signs: Vital Signs - 8 hr 10/16/24 10:13 Temperature 97.5 F L Pulse Rate 71 Respiratory Rate 16 Blood Pressure 229/108 H Pulse Oximetry 99 Oxygen Delivery Method Room Air MDM - Abdominal Pain Lab Data 10/16/24 10:30 10/16/24 10:30 Labs: Lab Results 10/16/24 10/16/24 10/16/24 Range/Units 10:30 10:55 10:55 WBC 11.6 H (4.5-11.0) X10^3/uL RBC 4.89 (4.5-5.9) X10^6/uL Hgb 15.9 (13.5-17.5) g/dL Hct 46.4 (41-53) % MCV 95.1 (80-100) fL MCH 32.6 (26-34) PG MCHC 34.2 (30-36) % RDW 12.6 (11.6-14.8) % Plt Count 224 (150-400) X10^3/uL Neut % (Auto) 80.0 H (50-75) % Lymph % (Auto) 12.6 L (25-40) % [place] % (Auto) 6.0 (3-14) % Eos % (Auto) 0.9 L (2-4) % Baso % (Auto) 0.5 (0-2) % Neut # (Auto) 9300 H (7793-0766) /uL Lymph # (Auto) 1500 (8364-8612) /uL [place] # (Auto) 700 (0-900) /uL Eos # (Auto) 100 (0-450) /uL Baso # (Auto) 100 (0-100) /uL Sodium 137 (137-145) mmol/L Potassium 4.2 (3.4-5.1) mmol/L Chloride 104 (98-107) mmol/L Carbon Dioxide 22 (22-32) mmol/L BUN 18 (9-20) mg/dL Creatinine 0.97 (0.66-1.25) mg/dL Estimated GFR > 60 (>60) mL/min BUN/Creatinine Ratio 18.6 (6-22) Glucose 110 H (70-99) mg/dL Calcium 9.4 (8.4-10.2) mg/dL Total Bilirubin 0.7 (0.2-1.3) mg/dL AST 44 (17-59) IU/L ALT 59 H (<50) IU/L Alkaline Phosphatase 89 (38-126) U/L Total Protein 8.2 (6.3-8.2) g/dL Albumin 4.8 (3.5-5.0) g/dL Globulin 3.4 (1.7-4.1) g/dL Albumin/Globulin Ratio 1.4 (1.0-2.8) Lipase 135 (23-300) U/L Urine Color Yellow Urine Appearance Clear Urine pH 6.0 (4.5-8.0) Ur Specific [place] <=1.005 (1.000-1.035) Urine Protein Negative (Negative) Urine Glucose (UA) Negative (Negative) g/dL Urine Ketones Negative (NEGATIVE) Urine Occult Blood Negative (Negative) Urine Nitrate Negative (Negative) Urine Bilirubin Negative (NEGATIVE) Urine Urobilinogen 0.2 (0.2) E.U./dL Ur Leukocyte Esterase Negative (NEGATIVE) Urine RBC None seen None seen (0-5/HPF) Urine WBC 0-1/hpf (0-5/HPF) Ur Squamous Epith Cells (0-5/HPF) Urine Bacteria (None) Ur Culture Indicated? Vol Urine Centrifuged 10/16/24 10/16/24 10/16/24 Range/Units 10:55 10:55 10:55 WBC (4.5-11.0) X10^3/uL RBC (4.5-5.9) X10^6/uL Hgb (13.5-17.5) g/dL Hct (41-53) % MCV (80-100) fL MCH (26-34) PG MCHC (30-36) % RDW (11.6-14.8) % Plt Count (150-400) X10^3/uL Neut % (Auto) (50-75) % Lymph % (Auto) (25-40) % [place] % (Auto) (3-14) % Eos % (Auto) (2-4) % Baso % (Auto) (0-2) % Neut # (Auto) (2473-3064) /uL Lymph # (Auto) (2835-5711) /uL [place] # (Auto) (0-900) /uL Eos # (Auto) (0-450) /uL Baso # (Auto) (0-100) /uL Sodium (137-145) mmol/L Potassium (3.4-5.1) mmol/L Chloride (98-107) mmol/L Carbon Dioxide (22-32) mmol/L BUN (9-20) mg/dL Creatinine (0.66-1.25) mg/dL Estimated GFR (>60) mL/min BUN/Creatinine Ratio (6-22) Glucose (70-99) mg/dL Calcium (8.4-10.2) mg/dL Total Bilirubin (0.2-1.3) mg/dL AST (17-59) IU/L ALT (<50) IU/L Alkaline Phosphatase (38-126) U/L Total Protein (6.3-8.2) g/dL Albumin (3.5-5.0) g/dL Globulin (1.7-4.1) g/dL Albumin/Globulin Ratio (1.0-2.8) Lipase (23-300) U/L Urine Color Urine Appearance Urine pH (4.5-8.0) Ur Specific [place] (1.000-1.035) Urine Protein (Negative) Urine Glucose (UA) (Negative) g/dL Urine Ketones (NEGATIVE) Urine Occult Blood (Negative) Urine Nitrate (Negative) Urine Bilirubin (NEGATIVE) Urine Urobilinogen (0.2) E.U./dL Ur Leukocyte Esterase (NEGATIVE) Urine RBC (0-5/HPF) Urine WBC 0-1/hpf (0-5/HPF) Ur Squamous Epith Cells 0-1 /hpf 0-1 /hpf (0-5/HPF) Urine Bacteria None seen None seen (None) Ur Culture Indicated? Cult not indicated Vol Urine Centrifuged 10/16/24 10/16/24 Range/Units 10:55 10:55 WBC (4.5-11.0) X10^3/uL RBC (4.5-5.9) X10^6/uL Hgb (13.5-17.5) g/dL Hct (41-53) % MCV (80-100) fL MCH (26-34) PG MCHC (30-36) % RDW (11.6-14.8) % Plt Count (150-400) X10^3/uL Neut % (Auto) (50-75) % Lymph % (Auto) (25-40) % [place] % (Auto) (3-14) % Eos % (Auto) (2-4) % Baso % (Auto) (0-2) % Neut # (Auto) (6615-8584) /uL Lymph # (Auto) (4942-5926) /uL [place] # (Auto) (0-900) /uL Eos # (Auto) (0-450) /uL Baso # (Auto) (0-100) /uL Sodium (137-145) mmol/L Potassium (3.4-5.1) mmol/L Chloride (98-107) mmol/L Carbon Dioxide (22-32) mmol/L BUN (9-20) mg/dL Creatinine (0.66-1.25) mg/dL Estimated GFR (>60) mL/min BUN/Creatinine Ratio (6-22) Glucose (70-99) mg/dL Calcium (8.4-10.2) mg/dL Total Bilirubin (0.2-1.3) mg/dL AST (17-59) IU/L ALT (<50) IU/L Alkaline Phosphatase (38-126) U/L Total Protein (6.3-8.2) g/dL Albumin (3.5-5.0) g/dL Globulin (1.7-4.1) g/dL Albumin/Globulin Ratio (1.0-2.8) Lipase (23-300) U/L Urine Color Urine Appearance Urine pH (4.5-8.0) Ur Specific [place] (1.000-1.035) Urine Protein (Negative) Urine Glucose (UA) (Negative) g/dL Urine Ketones (NEGATIVE) Urine Occult Blood (Negative) Urine Nitrate (Negative) Urine Bilirubin (NEGATIVE) Urine Urobilinogen (0.2) E.U./dL Ur Leukocyte Esterase (NEGATIVE) Urine RBC (0-5/HPF) Urine WBC (0-5/HPF) Ur Squamous Epith Cells (0-5/HPF) Urine Bacteria (None) Ur Culture Indicated? Cult not indicated Vol Urine Centrifuged 10ml (spun) 10ml (spun) Imaging Data CT scan - abdomen/pelvis: Radiologist's Impression: [address] [address] [address] Scan Report Signed Patient: Kirby Langley MR#: [id number] : 1955 Acct:[id number] Age/Sex: 69 / M Date of Service: 10/16/24 Loc: ED Accession Number: [id number] Procedure: CT abdomen pelvis w con Ordering Provider: Braulio Lynch MD PROCEDURE: CT ABDOMEN PELVIS W CON INDICATIONS: Generalized abdominal pain TECHNIQUE: After the administration of intravenous contrast, axial sections acquired from the lung bases to the pubic symphysis. Coronal and sagittal reformats were performed. For radiation dose reduction, the following was used: automated exposure control, adjustment of mA and/or kV according to patient size. COMPARISON: None. FINDINGS: Image quality: Diagnostic. Lower Chest: No significant findings. ABDOMEN: Liver: No solid mass. Fatty infiltration is prominent throughout the liver, and the liver is enlarged with a 21 cm craniocaudad length Gallbladder: No radiopaque gallstones or wall thickening. Biliary ducts: No biliary dilation. Pancreas: No ductal dilation. Spleen: Size is within normal limits. Adrenal Glands: No adrenal nodules. Kidneys and Ureters: No hydronephrosis. No solid mass. No complex renal cystic lesion which requires follow up. Stomach and Bowel: Normal colonic caliber, without significant wall thickening. Peritoneum: No abnormal intraperitoneal fluid. No free air. Ventral Wall: No significant ventral hernia. Abdominal Nodes: No retroperitoneal or mesenteric adenopathy by size criteria. Vessels: Aorta and inferior vena cava are normal in size. PELVIS: Pelvic Organs: Unremarkable. Bladder: No bladder wall thickening, accounting for underdistention. Veliz catheter present within the bladder lumen. Pelvic Nodes: No enlarged lymph nodes. Miscellaneous: No inguinal hernias are seen. Normal appendix found right lower quadrant. Bones: No aggressive osseous abnormality. IMPRESSION: Prominent fatty infiltration throughout the enlarged liver without splenomegaly or varices. Please correlate clinically for etiology of generalized hepatic steatosis. Normal appendix found right lower quadrant. No underlying infection or neoplasm is seen. Veliz catheter positioned normally within the bladder lumen. Dictated by: Rasta Mays M.D. on 10/16/2024 at 12:42 Approved by: Rasta Mays M.D. on 10/16/2024 at 12:47 MDM Narrative Medical decision making narrative: Patient here for urinary retention as well as lower abdominal distention and discomfort. Patient states has problems with constipation has not had a bowel movement in 3 days. States he feels there is stool at the rectum. He does not take laxatives. He does drink plenty of fluids and takes in a lot of fiber in his diet. Veliz catheter was placed on arrival and patient had 1800 mL of urine out. He is feeling better but still feels stool at his rectum. Denies denies any chest pain or back pain. No syncope. Blood pressure noted. He does take blood pressure medication. However states the discomfort likely causing his blood pressure elevation. After history and exam, CBC CMP Veliz catheter urinalysis CT abdomen pelvis [facility] Medical records reviewed: No recent visit for this complaint Differential considered: Includes but not limited to urinary retention bowel obstruction constipation UTI Lab Test results independently reviewed as above. Pertinent findings: WBC 11.6 hemoglobin 15.9 sodium 137 potassium 4.2 GFR greater than 60 lipase 135 AST 44 ALT 59 urinalysis no bacteria Imaging studies independently reviewed: CT abdomen pelvis no acute finding Consultations: None indicated this time Re-evaluations: 1:52 p.m. Reviewed results with patient. He denies any history of BPH or prostate problems. He did have out of the Veliz catheter. It is likely the retention that cause slowing down of his bowel movements. He is not impacted. However GoLYTELY will be sent home to help promote bowel movement. He does not need to drink all of it. Reviewed this with him. Urology referral provided. Return precautions reviewed. He desires discharge home. Discussion: Appropriate for discharge home. Exam is reassuring. Return precautions reviewed patient. Reviewed with them bladder retention likely cause slowing down of his bowel movements. He is feeling better. Return precautions reviewed. He desires discharge home. Diagnosis: Acute urinary retention Discharge Plan Departure Patient Disposition: Home Clinical Impression: Acute urinary retention Instructions: How to Care for Your Veliz Catheter -- Male, DI for Urinary Retention in Men Activity Restrictions/Additional Instructions: It is likely the urinary retention with your bladder cause slowing down of your bowel movements. GoLYTELY solution has been sent home with you do take to help for bowel movement. You do not need to drink all of it but enough to start bowel movements. Please review Veliz catheter care information. Please call provided urology offices today for follow up next week for removal of the Veliz catheter. Prescription for your prostate has been provided for you. Return if worse if any questions or concerns. See your family doctor next week for re-evaluation as well. Prescriptions: New tamsulosin 0.4 mg capsule 0.4 mg PO DAILY Qty: 30 0RF No Action oxycodone 5 mg tablet 5 - 10 mg PO Q6H PRN (Reason: pain) Qty: 30 0RF Referrals: Jordin Emery DO [Physician, Urology] Demond Page MD, PHD [Non-Staff, Urology] Stand Alone Forms: Patient Portal/API
[2024-10-16] MEDS: KETOROLAC 30 MG/ML VIAL 15 MG IV (13:27)
[2024-10-16] MEDS: SODIUM CHLORIDE 0.9% 500 ML 1000 ML IV (13:28)
[2024-10-16] MEDS: TAMSULOSIN 0.4 MG CAPSULE PO (14:04)
[2024-10-16] MEDS: PEG3350/SOD SULF,BICARB,CL/KCL 4,000 ML SOLUTION 2000 ML PO (14:07)
[2024-10-16 14:24] VITALS: BP 211/104; PULSE 70; RESP 16; O2SAT 100
[2024-10-16 16:27] LABS: Appearance Urine UA CLEAR; Bilirubin Urine UA NEGATIVE (NEGATIVE); Color Urine UA YELLOW; Glucose Urine UA NEGATIVE (Negative); Ketones Urine UA NEGATIVE (NEGATIVE); Leukocyte Esterase Urine UA NEGATIVE (NEGATIVE); Nitrite Urine UA NEGATIVE (Negative); Occult Blood Urine UA NEGATIVE (Negative); Protein Urine UA NEGATIVE (Negative); Specific Gravity Urine UA <=1.005 (1.000-1.035); Urobilinogen Urine UA 0.2 E.U./dL (0.2); pH Urine UA 6.0 (4.5-8.0)
[2024-10-16 16:30] LABS: Culture Indicated Urine Cult Not Indicated
== END 2024-10-16 14:30 | disposition home or self-care (01) ==
PROVIDERS: Emergency Provider Emergency Medicine
DX: R33.9 Retention of urine, unspecified (principal); R10.84 Generalized abdominal pain
CPT/HCPCS: 36415; 51798; 74177; 80053; 81001; 81015; 83690; 85025; 96361; 96374; 99284; J1885; Q9967

== ENCOUNTER → 2024-11-05 14:14 | Outpatient (CLI) | payer OTHER, SELFPAY ==
[2022-08-05 21:23] VITALS: BMI 26.2
== END ==
PROVIDERS: PCP Family Medicine; Visit Provider Urology
DX: R39.9 Unspecified symptoms and signs involving the genitourinary system (principal)
CPT/HCPCS: 87077; 87086